=== PATIENT | female | born 1995 | race Caucasian/White ===

== ENCOUNTER 2017-01-04 07:23 | Day surgery (SDC) | payer BC ==
[~2017-01-04 07:23] MED LIST: PROPOFOL INJ 200 MG/20 ML VIAL IV ONE
[2017-01-04 10:07] VITALS: BP 114/59
--- NOTE | 2017-01-04 12:49 | Operative Report ---
Operative Report DATE OF SURGERY: 01/04/17 Operative Report: The risks, benefits and alternatives of the procedure including risks of bleeding, perforation requiring surgery are explained to the patient in detail and informed consent is obtained. Patient is brought back to the endoscopy suite. Patient is placed in a left lateral decubital position. Timeout is called. Propofol medication is administered. A rectal examination was done which did not reveal any masses, tears or fissures. An Olympus videoscope was inserted into the patient's rectum. The scope was then gradually advanced all the way to the cecum. The cecum as identified by the usual anatomical landmarks including the ileocecal valve as well as the appendiceal office. Photodocumentation was obtained. Prep is good. The scope was then sequentially pulled back via the various segments of the colon including the ascending colon, hepatic flexure, transverse colon, splenic flexure, descending colon and finally into the rectosigmoid colon. Mucosa does otherwise appeared to be normal. Retroflexion maneuver is performed. Volume this the patient's stretcher was turned around and EGD performed.The risks benefits and alternatives of the procedure explained to the patient in detail and informed consent is obtained that GIF Olympus video scope was inserted into the patient's mouth and hypopharynx the esophagus is identified intubated and insufflated the scope was then advanced through the esophagus stomach and duodenum retroflexion maneuver is done the esophagus stomach and first and second portions of the duodenum examined PREOPERATIVE DIAGNOSIS: Nausea ,vomiting. Change of bowel habits POSTOPERATIVE DIAGNOSIS: Duodenitis. Gastritis. Right-sided colitis status post biopsy OPERATION: Colonoscopy with biopsy. EGD with biopsy SURGEON: MABEL ALBA ANESTHESIA: LMAC TISSUE REMOVED OR ALTERED: Duodenal biopsies obtained to rule out for celiac disease. Gastric biopsies obtained to rule out for Helicobacter pylori. Right- sided inflammation status post biopsy rule out lymphocytic, collagenous, microscopic colitis. COMPLICATIONS: None. ESTIMATED BLOOD LOSS: none. INTRAOPERATIVE FINDINGS: Normal patent esophagus. In the colon, no evidence of Crohn's colitis, ulcerative colitis, AVMs, diverticulosis. PROCEDURE: Patient tolerated procedure well. No immediate postprocedure complications are noted. Patient is discharged in good condition. Discharge date 01/04/2017. Discharge diet: Regular. Discharge activity: Regular. Patient has a 2-3 week follow-up to discuss findings. Once biopsies are available of go ahead and give the patient a call. Patient is instructed to all the office or proceed to the emergency room after any postprocedure issues.
== END 2017-01-04 09:58 | disposition home or self-care (01) ==
LOC: END 07:23
PROVIDERS: ATTEND Internal Medicine Gastroenterology
PROC: 0DBF8ZX Excision of Right Large Intestine, Via Natural or Artificial Opening Endoscopic, Diagnostic (ICD-10-PCS; 2017-01-04)
PROC: 0DB98ZX Excision of Duodenum, Via Natural or Artificial Opening Endoscopic, Diagnostic (ICD-10-PCS; principal; 2017-01-04 09:00)
PROC: 0DB68ZX Excision of Stomach, Via Natural or Artificial Opening Endoscopic, Diagnostic (ICD-10-PCS; 2017-01-04 09:00)
DX: K29.50 Unspecified chronic gastritis without bleeding (principal); K29.80 Duodenitis without bleeding; K52.9 Noninfective gastroenteritis and colitis, unspecified; I49.5 Sick sinus syndrome; F41.9 Anxiety disorder, unspecified; R53.82 Chronic fatigue, unspecified; Q79.6 Ehlers-Danlos syndromes; G43.109 Migraine with aura, not intractable, without status migrainosus; G93.2 Benign intracranial hypertension; J45.909 Unspecified asthma, uncomplicated; E53.9 Vitamin B deficiency, unspecified
CPT/HCPCS: 43239; 45380; 88342 ×2; 88305 ×2; J2704; 740

== ENCOUNTER → 2017-04-14 | Outpatient (CLI) | payer BC ==
--- NOTE | 2017-04-14 14:23 | RADIOLOGY REPORT (SQ) ---
EXAM DESCRIPTION: HIP RIGHT AP/LATERAL COMPLETED DATE/TIME: 04/14/2017 2:11 pm REASON FOR STUDY: OTHER SPECIFIED JOINT DISORDERS, UNSPECIFIED HIP M25.859 OTHER SPECIFIED JOINT DI SORDERS, UNSPECIFIED HIP COMPARISON: None. NUMBER OF VIEWS: Two views. TECHNIQUE: AP pelvis and additional frog-leg view of the right hip. LIMITATIONS: None. FINDINGS: MINERALIZATION: Normal. RIGHT HIP: No fracture or dislocation. No worrisome bone lesions. LEFT HIP: No fracture or dislocation. No worrisome bone lesions. PUBIS AND ISCHIUM: No fracture. PELVIS: No fracture. SACRUM: No fracture or dislocation. No worrisome bone lesions. LOWER LUMBAR SPINE: No fracture or dislocation. No worrisome bone lesions. No significant disc disea se. SOFT TISSUES: No findings. OTHER: No other significant finding. IMPRESSION: NEGATIVE STUDY OF THE RIGHT HIP. NO RADIOGRAPHIC EVIDENCE OF ACUTE INJURY. TECHNICAL DOCUMENTATION: JOB ID: [id number] [employer]- All Rights Reserved
== END ==
LOC: OD 13:55
PROVIDERS: ATTEND Student in an Organized Health Care Education/Training Program
DX: M25.851 Other specified joint disorders, right hip (principal)

== ENCOUNTER → 2017-04-29 | Day surgery (SDC) | payer BC ==
--- NOTE | 2017-04-29 15:00 | RADIOLOGY REPORT (SQ) ---
EXAM DESCRIPTION: ARTHRO HIP; FLUORO/NEEDLE PLACEMENT COMPLETED DATE/TIME: 04/29/2017 2:48 pm REASON FOR STUDY: OTHER SPECIFIED JOINT DISORDER, R HIP M25.859 OTHER SPECIFIED JOINT DISORDERS, UN SPECIFIED HIP COMPARISON: None. FLUOROSCOPY TIME: 0.2 minutes 3 images saved to PACS. LIMITATIONS: None. PROCEDURE: Procedure, risks, benefits and alternatives explained to patient who then gave written c onsent. The right hip was marked and a time-out was called for correct marking verification. Entry site marked using fluoroscopic guidance. Hip prepped and draped using sterile technique. Local ane sthesia achieved using 1% lidocaine injection. Hypodermic needle introduced into the joint space un dana direct fluoroscopic visualization. Non-ionic contrast instilled to confirm intra-articular posit ion. Dilute gadolinium solution then injected. Needle removed and entry site covered with sterile bandage. No immediate complications noted. TECHNIQUE: Digital images acquired during fluoroscopy and stored on PACS. Patient immediately take n to the MR suite for additional imaging. INJECTION LOCATION: Right hip. CONTRAST TYPE AND AMOUNT: 1 cc Isovue 8 cc dilute ProHance IMPRESSION: SUCCESSFUL NEEDLE PLACEMENT AND INJECTION FOR RIGHT HIP MR ARTHROGRAM. COMMENT: Quality ID [id number]: Final reports for procedures using fluoroscopy that document radiation exp osure indices, or exposure time and number of fluorographic images (if radiation exposure indices are not available) TECHNICAL DOCUMENTATION: JOB ID: [id number] [employer] [facility]- All Rights Reserved
--- NOTE | 2017-04-29 16:46 | RADIOLOGY REPORT (SQ) ---
EXAM DESCRIPTION: MRI RT LOWER JOINT WITH COMPLETED DATE/TIME: 04/29/2017 3:52 pm REASON FOR STUDY: OTHER SPECIFIED JOINT DISORDERS, R HIP M25.859 OTHER SPECIFIED JOINT DISORDERS, U NSPECIFIED HIP COMPARISON: None. TECHNIQUE: Post arthrogram imaging is performed using T1 and T1 and T2 fat saturated sequences of th e pelvis and specific hip of interest. LIMITATIONS: Body habitus. Motion. FINDINGS: JOINT DISTENSION: Adequate. No loose body. BONE MARROW: No edema. No marrow replacement. FEMORAL HEAD, NECK, AND ACETABULUM: No occult fracture. No osteophytes or subchondral cysts. Normal s phericity of femoral head/neck junction. No acetabular dysplasia. No evidence of femoroacetabular imp ingement. PUBIC RAMI AND ISCHIUM: No occult fracture. SACRUM AND PREETHI: SI joints normal in signal. No occult fracture. EFFUSIONS: None. LABRUM AND CARTILAGE: Series 7, images 14 and 15, signal alteration anterior superior labrum consiste nt with a tear. MUSCLES AND SOFT TISSUES: Adductors and piriformis normal. Abductors and greater trochanteric bursa n ormal without edema or fluid. Iliopsoas bursa without fluid. Hamstring attachments without edema or t ear. PELVIC SOFT TISSUES: No masses or adenopathy. SCIATIC NERVE: Identified without masses. OTHER: No other significant finding. IMPRESSION: Anterior superior labral tear. TECHNICAL DOCUMENTATION: JOB ID: [id number] [employer]- All Rights Reserved
== END ==
LOC: RAD 12:45
PROVIDERS: ATTEND Student in an Organized Health Care Education/Training Program
PROC: BQ00ZZZ Plain Radiography of Right Hip (ICD-10-PCS; principal; 2017-04-29)
DX: M25.859 Other specified joint disorders, unspecified hip (principal); Q79.6 Ehlers-Danlos syndromes
CPT/HCPCS: 73722; 73525; 77002; A9576

== ENCOUNTER 2017-10-05 14:54 | Emergency (ER) | payer BC ==
--- NOTE | 2017-10-05 15:52 | ER Document Report ---
ED GI/ - General Chief Complaint: Nausea/Vomiting Stated Complaint: VOMITING Time Seen by Provider: 10/05/17 15:50 Notes: The patient is a 22-year-old female, PMHx Rosy-Danlos syndrome, pseudotumor cerebri, autonomic dysfunction, who presents with 2 days of nausea, vomiting, diarrhea and lower abdominal cramping. Patient also has a dull right posterior headache this feels similar to her prior headaches. Patient denies hematemesis , blood in stool, chest pain, shortness of breath, blurry vision, focal weakness , ataxia, flank pain, dysuria or vaginal bleeding. TRAVEL OUTSIDE OF THE [place] IN LAST 30 DAYS: No - Related Data Allergies/Adverse Reactions: adhesive Allergy (Severe, Verified 10/05/17 14:58) BLISTERS AND SKIN WILL RIP AND FALL OFF amoxicillin Allergy (Severe, Verified 10/05/17 14:58) Anaphylaxis clavulanic acid [From Augmentin] Allergy (Severe, Verified 10/05/17 14:58) Anaphylaxis egg Allergy (Severe, Verified 10/05/17 14:58) Anaphylaxis Influenza Virus Vaccines Allergy (Severe, Verified 10/05/17 14:58) Anaphylaxis latex Allergy (Severe, Verified 10/05/17 14:58) Anaphylaxis levofloxacin [From Levaquin] Allergy (Severe, Verified 10/05/17 14:58) Anaphylaxis povidone-iodine [From Betadine] Allergy (Severe, Verified 10/05/17 14:58) Anaphylaxis soap [From Betadine] Allergy (Severe, Verified 10/05/17 14:58) Anaphylaxis Sulfa (Sulfonamide Antibiotics) Allergy (Severe, Verified 10/05/17 14:58) Anaphylaxis aspartame [From Prevalite] Allergy (Mild, Verified 10/05/17 14:58) RASH cholestyramine [From Prevalite] Allergy (Mild, Verified 10/05/17 14:58) RASH nitrofurantoin [From Macrobid] Allergy (Mild, Verified 10/05/17 14:58) RASH CHLORAPREP Allergy (Severe, Uncoded 10/05/17 14:58) Anaphylaxis Past Medical History - General Information source: Patient - Social History Smoking Status: Unknown if Ever Smoked Family History: Reviewed & Not Pertinent - Past Medical History Cardiac Medical History: Denies: Hx Coronary Artery Disease, Hx Heart Attack, Hx Hypertension Pulmonary Medical History: Denies: Hx Asthma - REACTIVE [employer], Hx Bronchitis, Hx COPD, Hx Pneumonia Neurological Medical History: Denies: Hx Cerebrovascular Accident, Hx Seizures - DOES EXPERIENCE SYNCOPAL EPISODES Musculoskeltal Medical History: Reports Hx Arthritis - EARLY ONSET OSTEOARTHRITS , FREQUENT DISLOCATIONS OF JOINTS - Immunizations Hx Diphtheria, Pertussis, Tetanus Vaccination: No Review of Systems - Review of Systems Notes: REVIEW OF SYSTEMS: CONSTITUTIONAL: -fevers, -chills EENT: -eye pain, -difficulty swallowing, -nasal congestion CARDIOVASCULAR:-chest pain, -syncope. RESPIRATORY: -cough, -SOB GASTROINTESTINAL: +abdominal cramping, +nausea, +vomiting, +diarrhea GENITOURINARY: -dysuria, -hematuria MUSCULOSKELETAL: -back pain, -neck pain SKIN: -rash or skin lesions. HEMATOLOGIC: -easy bruising or bleeding. LYMPHATIC: -swollen, enlarged glands. NEUROLOGICAL: -altered mental status or loss of consciousness, +headache, - neurologic symptoms PSYCHIATRIC: -anxiety, -depression. ALL OTHER SYSTEMS REVIEWED AND NEGATIVE. Physical Exam - Vital signs Vitals: Temp Pulse Resp BP Pulse Ox 98.5 F 109 H 18 128/76 H 98 10/05/17 14:57 10/05/17 14:57 10/05/17 14:57 10/05/17 14:57 10/05/17 14:57 - Notes Notes: PHYSICAL EXAMINATION: GENERAL: Well-appearing, well-nourished and in no acute distress. HEAD: Atraumatic, normocephalic. EYES: Pupils equal round and reactive to light, extraocular movements intact, sclera anicteric, conjunctiva are normal. ENT: nares patent, oropharynx clear without exudates. Moist mucous membranes. NECK: Normal range of motion, supple without lymphadenopathy LUNGS: Breath sounds clear to auscultation bilaterally and equal. No wheezes rales or rhonchi. HEART: Tachycardia. Regular rhythm. ABDOMEN: Soft, mild suprapubic and RLQ tenderness, normoactive bowel sounds. No guarding, no rebound. No masses appreciated. EXTREMITIES: Normal range of motion, no pitting or edema. No cyanosis. NEUROLOGICAL: Cranial nerves grossly intact. Normal speech, normal gait. Normal sensory and motor exams. PSYCH: Normal mood, normal affect. SKIN: Warm, Dry, normal turgor, no rashes or lesions noted. Course - Re-evaluation Re-evalutation: Patient with 2 days of nausea, vomiting, diarrhea and right mid-lower quadrant abdominal pain. Labs are unremarkable, other than slight hypokalemia which was corrected in the ER. CT abdomen/pelvis does not show any evidence of appendicitis and her symptoms are atypical for ovarian torsion or TOA at this time. She is more tender above the pelvis. After IV fluids, pain control and antinausea medicine, her symptoms completely resolved and her tachycardia also resolved upon discharge. Patient's headache is chronic in nature and she is having no visual disturbances to suggest an IICH emergency. Patient was provided Zofran to help with her nausea and instructions to stay hydrated with follow-up at her primary care physician and GI doctor if needed. Given very strict return precautions and she understands. - Vital Signs Vital signs: Temp Pulse Resp BP Pulse Ox 98.5 F 109 H 27 H 122/85 96 10/05/17 14:57 10/05/17 14:57 10/05/17 18:59 10/05/17 19:00 10/05/17 18:59 - Laboratory Result Diagrams: 10/05/17 16:25 10/05/17 17:47 Laboratory results interpreted by me: 10/05/17 10/05/17 10/05/17 15:55 16:25 17:47 WBC 11.1 H Seg Neutrophils % 80.2 H Lymphocytes % 11.4 L Absolute Neutrophils 8.9 H Potassium 3.1 L BUN 3 L Calcium 8.3 L Total Protein 5.8 L Albumin 3.4 L Urine Ketones TRACE H Urine Blood MODERATE H Ur Leukocyte Esterase SMALL H - Diagnostic Test Radiology reviewed: Image reviewed, Reports reviewed Radiology results interpreted by me: CT A/P: NAD Discharge - Discharge Clinical Impression: Nausea vomiting and diarrhea, Hypokalemia Abdominal pain Qualifiers: Abdominal location: right lower quadrant Qualified Code(s): R10.31 - Right lower quadrant pain Headache Qualifiers: Headache type: unspecified Headache chronicity pattern: chronic headache Intractability: not intractable Qualified Code(s): R51 - Headache Condition: Stable Disposition: HOME, SELF-CARE Additional Instructions: ABDOMINAL PAIN: There are many causes of abdominal pain. Pain can mean a serious problem requiring surgery (such as appendicitis). It can also be an innocent problem that goes away on its own (such as a viral infection). Often, time must pass to determine the cause of pain. The physician does not feel that hospitalization is necessary, at present. Things may change within the next 24 hours. Call the doctor or come back for re- examination if any problems occur, such as: (1) Pain that becomes more severe, steady, or becomes concentrated in one specific area. Also, pain that is more severe with movement or coughing. (2) Vomiting that persists or becomes more frequent. (3) Blood in the vomitus, urine, or bowel movements. Blood in the stool may have a tarry or black appearance. (4) Shaking chills or fever greater than 100 degrees F. (5) The abdomen becomes more distended or swollen. (6) Bowel movements cease. (7) Failure to improve as expected. NORMAL EXAM AND WORKUP: At this time, your examination and workup show no significant abnormality. No significant abnormal physical findings are noted. All laboratory, EKG, and imaging (x-ray, CT scans, ultrasound) studies that were ordered show no significant abnormality. Although your examination and all studies that were ordered showed no significant abnormal finding, there are no examinations and no studies that are 100% accurate. There is always the possibility that some abnormality could exist and not be detected with physical examination or within the limits and capabilities of laboratory and other studies. You should return or follow up as you were instructed on your visit today for further evaluation if your symptoms do not resolve. TORADOL INJECTION: You have been given an injection of ketorolac tromethamine (Toradol). This is an excellent, safe drug for pain control. It also has potent antiinflammatory action. You should have significant pain relief within about one hour. Toradol is not addicting and is non-sedating. It does not interfere with driving or work. Call or return if you develop itching, hives, shortness of breath, or rash. PAIN MEDICATION INJECTION: You have received an injection of a pain medication. You should experience significant pain relief within 45 minutes. This drug is a narcotic - - it will impair your judgement, slow your reaction time and make you sleepy ( as well as relieve your pain). Narcotics also can cause nausea. You should not drive, work with machinery, or perform any task requiring mental alertness until all effects of the medication are gone -- six to eight hours. Do not take any alcohol, or sedatives, and do not take any other medication without checking with your physician. ANTINAUSEA MEDICATION: You have been given a medication to suppress nausea and vomiting. This type of medication can be given as a shot, pill, or suppository. It will usually last for many hours. Pills and shots usually last six to eight hours, suppositories last about 12 hours. For the typical illness, only one or two doses of the medication may be necessary. Mild lightheadedness may occur. This type of medicine can cause drowsiness. Do not drive or operate dangerous machinery while under its influence. Do not mix with alcohol. See your doctor at once if you have muscle spasms or tightness, or uncontrollable motions (particularly of the neck, mouth, or jaw). Persistent vomiting or severe lightheadedness should also be evaluated by the physician. FOLLOW-UP CARE: If you have been referred to a physician for follow-up care, call the physician s office for an appointment as you were instructed or within the next two days. If you experience worsening or a significant change in your symptoms, notify the physician immediately or return to the Emergency Department at any time for re-evaluation. VOMITING: Vomiting (or nausea without vomiting) can be caused by many other different problems. It can mean that something's wrong with the stomach, such as ulcers or inflammation or the intestinal tract, such as appendicitis. But it can also be a symptom of a problem that has nothing to do with the stomach or intestines. Vomiting is common with severe headaches, earaches, tonsillitis, and kidney infections, etc. We see it with pneumonia or heart attacks. Drugs can cause nausea and vomiting. Many abdominal problems cause vomiting; for example, gallstones, kidney stones, pancreatitis, and intestinal obstruction ( blocked bowels). In most cases, curing the vomiting depends on fixing the problem that caused it. For temporary relief, we may use an anti-nausea medicine. For home use, we can prescribe suppositories, chewable pills, pills that dissolve in the mouth, or liquid anti-nausea drugs. If the vomiting seems to be caused by a problem in the stomach, acid-suppressing drugs may be prescribed as well. It's important to avoid dehydration. Sip small amounts of clear liquids ( soft drinks, tea, broth, etc) . Try to take fluids frequently even if you are vomiting to prevent dehydration. Take increasing amounts of fluid and when liquids are being consumed successfully, advance to small amounts of bland food (toast, soups, mashed potatoes, etc.) until you are able to resume a regular diet. Avoid aspirin, tobacco, and alcohol. If the vomiting worsens, if the problem that's making you vomit worsens, or if there's evidence of bleeding in the stomach (such as black, tarry stool, or bloody or black vomit), you should return immediately. Also, return if abdominal pain worsens or becomes localized to one area or you develop high fever. Call your doctor if you aren't improved in 24 hours. DIARRHEA, NON-SPECIFIC: Diarrhea means frequent, watery stools. There are many causes. Any problem that keeps the intestinal tract from absorbing water from the stool can lead to diarrhea. A sudden new diarrhea problem is usually caused by a virus, food sensitivity, toxic bacteria, or drugs. In this case, we expect the problem to go away soon. Testing is done only if you seem seriously ill from the diarrhea. If you have chronic diarrhea, or diarrhea that keeps coming back, we need to find out why. Chronic diarrhea can be due to inflammation of the bowels such as Crohn's disease or ulcerative colitis, food sensitivity such as intolerance to lactose or wheat protein, irritable bowel syndrome, and other problems. If your diarrhea is a significant problem but it's not clear why you have it, we' ll refer you to a specialist for further testing. During an episode of diarrhea, drink small amounts (two to six ounces) of clear liquids (soft drinks, sport drinks, herb teas, broth, etc). Take fluids frequently to prevent dehydration. It's usually not a problem to take mild anti- diarrhea medication such as Kaopectate or Pepto-Bismol. As the diarrhea eases, advance to small amounts of bland food (mashed potato, toast) for 24 hours. Call the physician if blood appears in your vomit or stool, if vomiting lasts longer than 24 hours, if the abdominal pain worsens or becomes localized to one area, if you develop high fever, or if you become lightheaded and weak. VIRAL SYNDROME: The physician has diagnosed a viral infection. Viruses not only cause "colds," but can cause many different symptoms including generalized aching, fever, headache, cough, diarrhea, nausea, vomiting, and fatigue. The treatment, for the most part, is simply relief of symptoms. This means that antibiotics are usually not given. Rest, fluids, pain medications and, occasionally, medication for the specific symptoms that are most bothersome will be prescribed. Use good handwashing to avoid passing the virus to others. Shared toys should be cleaned with disinfectant. Clean the toilets, sinks, and counter surfaces in bathrooms. Launder clothing in hot water. Contact the physician if you develop any new or unusual symptoms such as severe headache, stiff neck, high fever, chest pain, productive cough, or shortness of breath. You should be rechecked if you don't see marked improvement within seven to 10 days. INTRAVENOUS (I V) FLUIDS: As part of your care today, you received intravenous (IV) fluids. IV fluids are administered to patients who are dehydrated or to those who have certain chemical (electrolyte) abnormalities that need correcting. ANTINAUSEA MEDICATION: You have been given a medication to suppress nausea and vomiting. This type of medication can be given as a shot, pill, or suppository. It will usually last for many hours. Pills and shots usually last six to eight hours. For the typical illness, only one or two doses of the medication may be necessary. Mild lightheadedness may occur. This type of medicine can cause drowsiness. Do not drive or operate dangerous machinery while under its influence. Do not mix with alcohol. See your doctor at once if you have muscle spasms or tightness, or uncontrollable motions (particularly of the neck, mouth, or jaw). Persistent vomiting or severe lightheadedness should also be evaluated by the physician. REGLAN (METOCLOPRAMIDE): Reglan has been prescribed. This medicine affects the stomach and intestines. It can be used to treat nausea and vomiting, to prevent reflux of stomach acid up into the esophagus, or to increase the contractions of the stomach and intestines. It is often prescribed for esophagitis, and for paralysis of the stomach in diabetics. Reglan can cause either mild restlessness or drowsiness. You should contact the doctor at once if you become extremely restless, anxious, or cannot sleep, or if you develop uncontrollable motions of the lips, tongue, or jaw. Do not take alcohol with this medicine. Do not drive or operate machinery until you have been taking this medicine long enough to know how it affects you. Call the doctor if you develop abdominal pains, lightheadedness, black stool, or blood in the stool or vomitus. FOLLOW-UP CARE: If you have been referred to a physician for follow-up care, call the physician s office for an appointment as you were instructed or within the next two days. If you experience worsening or a significant change in your symptoms, notify the physician immediately or return to the Emergency Department at any time for re-evaluation. Prescriptions: Ondansetron [Zofran Odt 4 mg Tablet] 1 - 2 tab PO Q4H PRN #15 tab.rapdis PRN Reason: For Nausea/Vomiting Referrals: WASHINGTON MCKINLEY DO [Primary Care Provider] - Follow up as needed BRYCE SALVADOR MD [ACTIVE STAFF] - Follow up as needed
[2017-10-05] MEDS ORDERED: ONDANSETRON HCL INJ/PF 4 MG/2 ML SDV IV ONE (16:05)
[2017-10-05 16:26] LABS: APPEARANCE,URINE CLEAR; BILIRUBIN,URINE NEGATIVE (NEGATIVE); GLUCOSE, URINE NEGATIVE (NEGATIVE); KETONES,URINE TRACE mg/dL (NEGATIVE); LEUKOCYTE ESTERASE,URINE SMALL (NEGATIVE); NITRITE,URINE NEGATIVE (NEGATIVE); PROTEIN,URINE NEGATIVE (NEGATIVE); URINE SPECIFIC GRAVITY 1.004; UROBILINOGEN,URINE NEGATIVE mg/dL (<2.0)
[2017-10-05 16:40] LABS: ABSOLUTE BASOPHILS # (AUTO) 0.1 10^3/uL (0.0-0.2); ABSOLUTE LYMPHOCYTES (AUTO) 1.3 10^3/uL (0.5-4.7); ABSOLUTE MONOCYTES (AUTO) 0.8 10^3/uL (0.1-1.4); ABSOLUTE NEUT (AUTO) 8.9 10^3/uL (1.7-8.2); BASOPHILS % (AUTO) 0.6 % (0-2); EOSINOPHILS % (AUTO) 0.4 % (0-6); HEMATOCRIT 38.2 % (36.0-47.0); HEMOGLOBIN 13.4 g/dL (12.0-15.5); LYMPHOCYTES % (AUTO) 11.4 % (13-45); MEAN CORPUSCULAR HEMOGLOBIN 30.2 pg (27.0-33.4); MEAN CORPUSCULAR VOLUME 86 fl (80-97); MONOCYTES % (AUTO) 7.4 % (3-13); RED BLOOD COUNT 4.43 10^6/uL (3.72-5.28); RED CELL DISTRIBUTION WIDTH 12.7 % (11.5-14.0); SEGMENTED NEUTROPHILS % (AUTO) 80.2 % (42-78); WHITE BLOOD COUNT 11.1 10^3/uL (4.0-10.5)
[2017-10-05] MEDS ORDERED: KETOROLAC TROMETHAMINE INJ/PF 30 MG/1 ML SDV IV ONE (16:40)
[2017-10-05] MEDS: NORMAL SALINE 1000 ML 1,000 ML IV PRN ×2 (16:45→19:21)
[2017-10-05 18:20] LABS: ALANINE AMINOTRANSFERASE 44 U/L (9-52); ALBUMIN 3.4 g/dL (3.5-5.0); ALKALINE PHOSPHATASE 54 U/L (38-126); ANION GAP 12 (5-19); ASPARTATE AMINO TRANSFERASE 17 U/L (14-36); BILIRUBIN,DIRECT 0.2 mg/dL (0.0-0.4); BILIRUBIN,TOTAL 0.5 mg/dL (0.2-1.3); BLOOD UREA NITROGEN 3 mg/dL (7-20); CALCIUM 8.3 mg/dL (8.4-10.2); CARBON DIOXIDE 22 mmol/L (22-30); CHLORIDE 107 mmol/L (98-107); CREATININE RESULT 0.54 mg/dL (0.52-1.25); GLUCOSE 96 mg/dL (75-110); LIPASE 26.3 U/L (23-300); POTASSIUM 3.1 mmol/L (3.6-5.0); SODIUM 140.8 mmol/L (137-145); TOTAL PROTEIN 5.8 g/dL (6.3-8.2)
[2017-10-05] MEDS ORDERED: POTASSIUM CHLORIDE 10 MEQ TABLET.SA PO ONE (18:25)
[2017-10-05] MEDS ORDERED: METOCLOPRAMIDE HCL INJ/PF 10 MG/2 ML SDV IV ONE (18:27)
[2017-10-05] MEDS ORDERED: MORPHINE SULFATE 10 MG/ML INJ IV ONE (18:27)
--- NOTE | 2017-10-05 19:22 | RADIOLOGY REPORT (SQ) ---
EXAM DESCRIPTION: CT ABD/PELVIS WITH IV ONLY COMPLETED DATE/TIME: 10/05/2017 7:13 pm REASON FOR STUDY: RLQ tenderness COMPARISON: None. TECHNIQUE: CT scan of the abdomen and pelvis performed using helical scanning technique with dynamic intravenous contrast injection. No oral contrast. Images reviewed with lung, soft tissue, and bone windows. Reconstructed coronal and sagittal MPR images reviewed. Delayed images for evaluation of the urinary system also acquired. All images stored on PACS. All CT scanners at this facility use dose modulation, iterative reconstruction, and/or weight based d osing when appropriate to reduce radiation dose to as low as reasonably achievable (ALARA). [facility]: Dose Right [facility]: CareDose [facility]: Dose Right [facility]: Teradose 4D [facility]: [facility] CONTRAST TYPE AND DOSE: contrast/concentration: Isovue 370.00 mg/ml; Total Contrast Delivered: 100.0 ml; Total Saline Delivered: 45.0 ml RENAL FUNCTION: None required. The patient is less than 50 years old. RADIATION DOSE: Up-to-date CT equipment and radiation dose reduction techniques were employed. CTDIv ol: NaN - NaN mGy. DLP: 0 mGy-cm.. LIMITATIONS: None. FINDINGS: LOWER CHEST: No significant findings. No nodules or infiltrates. LIVER: Normal size. No masses. No dilated ducts. SPLEEN: Normal size. No focal lesions. PANCREAS: No masses. No significant calcifications. No adjacent inflammation or peripancreatic fluid collections. Pancreatic duct not dilated. GALLBLADDER: Surgically absent. ADRENAL GLANDS: No significant masses or asymmetry. RIGHT KIDNEY AND URETER: No solid masses. No significant calcifications. No hydronephrosis or hyd roureter. LEFT KIDNEY AND URETER: No solid masses. No significant calcifications. No hydronephrosis or hydr oureter. AORTA AND VESSELS: No aneurysm. No dissection. Renal arteries, SMA, celiac without stenosis. RETROPERITONEUM: No retroperitoneal adenopathy, hemorrhage or masses. BOWEL AND PERITONEAL CAVITY: No masses or inflammatory changes. No free fluid or peritoneal masses. APPENDIX: Normal. PELVIS: No mass. No free fluid. Normal bladder. ABDOMINAL WALL: No masses. No hernias. BONES: No significant or acute findings. OTHER: No other significant finding. IMPRESSION: NO SIGNIFICANT OR ACUTE FINDING IN THE ABDOMEN OR PELVIS ON CT SCAN WITH IV CONTRAST. TECHNICAL DOCUMENTATION: JOB ID: [id number] Quality ID # [id number]: Final reports with documentation of one or more dose reduction techniques (e.g., Au tomated exposure control, adjustment of the mA and/or kV according to patient size, use of iterative reconstruction technique) 2010 [employer]- All Rights Reserved
[2017-10-05 19:55] VITALS: BP 124/76
== END 2017-10-05 19:55 | disposition home or self-care (01) ==
LOC: ER 14:54
DX: R11.2 Nausea with vomiting, unspecified (principal); R19.7 Diarrhea, unspecified; E87.6 Hypokalemia; R10.31 Right lower quadrant pain; R51 Headache
CPT/HCPCS: 99284; 96361; 96374; 96375; 36415; 83690; 84703; 85025; 80053; 81001; 74177; J1885; J2765; J2270; J2405; J7030

== ENCOUNTER → 2017-12-16 | Outpatient (CLI) | payer BC ==
--- NOTE | 2017-12-16 15:26 | RADIOLOGY REPORT (SQ) ---
EXAM DESCRIPTION: PHYSI[employer]TD COMPLETED DATE/TIME: 12/16/2017 3:01 pm REASON FOR STUDY: PAIN M79.661 PAIN IN RIGHT LOWER LEG COMPARISON: None. TECHNIQUE: Brachial blood pressure obtained. Pressures obtained of the peripheral vessels at the lev el of the ankle. Ankle brachial indices calculated. LIMITATIONS: None. FINDINGS: RIGHT SARAH: 0.88. LEFT SARAH: 0.95. IMPRESSION: MILDLY DECREASED ANKLE-BRACHIAL INDICES. CORRESPOND TO BORDERLINE CLAUDICATION IN THE R IGHT LEG AND MINIMAL DISEASE IN THE LEFT LEG. COMMENT: [facility] NORMAL: Greater than 1.0 MINIMAL DISEASE: 0.9 to 1.0 CLAUDICATION: 0.5 to 0.9 SEVERE ARTERIAL DISEASE: Less than 0.5 [facility] NORMAL: Greater than 1.0 (1.2 If Heavy Calcifications) NORMAL TO MILD ISCHEMIA: 0.8 to 1.0 MODERATE ISCHEMIA: 0.4 to 0.8 SEVERE ISCHEMIA: Less than 0.4 TECHNICAL DOCUMENTATION: JOB ID: [id number] [employer]- All Rights Reserved
== END ==
LOC: SP 14:00
PROVIDERS: ATTEND Student in an Organized Health Care Education/Training Program
DX: I73.9 Peripheral vascular disease, unspecified (principal); M79.661 Pain in right lower leg
CPT/HCPCS: 93922

== ENCOUNTER 2018-01-15 12:42 | Emergency (ER) | payer BC ==
--- NOTE | 2018-01-15 13:06 | ER Document Report ---
ED Medical Screen (RME) - General Chief Complaint: Leg Pain Stated Complaint: LEG PAIN, NUMBNESS, DIZZY Time Seen by Provider: 01/15/18 13:04 Mode of Arrival: Wheelchair Information source: Patient TRAVEL OUTSIDE OF THE [place] IN LAST 30 DAYS: No - HPI Patient complains to provider of: R leg pain; syncope Onset: Other - Pt. states she has had R leg pain for several weeks -- had SARAH done but doesn't know results. Now has numbness in R leg. - Related Data Allergies/Adverse Reactions: adhesive Allergy (Severe, Verified 01/15/18 13:00) BLISTERS AND SKIN WILL RIP AND FALL OFF amoxicillin Allergy (Severe, Verified 01/15/18 13:00) Anaphylaxis ciprofloxacin [From Cipro] Allergy (Severe, Verified 01/15/18 13:00) Anaphylaxis clavulanic acid [From Augmentin] Allergy (Severe, Verified 01/15/18 13:00) Anaphylaxis egg Allergy (Severe, Verified 01/15/18 13:00) Anaphylaxis Influenza Virus Vaccines Allergy (Severe, Verified 01/15/18 13:00) Anaphylaxis latex Allergy (Severe, Verified 01/15/18 13:00) Anaphylaxis levofloxacin [From Levaquin] Allergy (Severe, Verified 01/15/18 13:00) Anaphylaxis Penicillins Allergy (Severe, Verified 01/15/18 13:00) Anaphylaxis povidone-iodine [From Betadine] Allergy (Severe, Verified 01/15/18 13:00) Anaphylaxis soap [From Betadine] Allergy (Severe, Verified 01/15/18 13:00) Anaphylaxis Sulfa (Sulfonamide Antibiotics) Allergy (Severe, Verified 01/15/18 13:00) Anaphylaxis aspartame [From Prevalite] Allergy (Mild, Verified 01/15/18 13:00) RASH cholestyramine [From Prevalite] Allergy (Mild, Verified 01/15/18 13:00) RASH nitrofurantoin [From Macrobid] Allergy (Mild, Verified 01/15/18 13:00) RASH CHLORAPREP Allergy (Severe, Uncoded 01/15/18 13:00) Anaphylaxis Past Medical History - Social History Chew tobacco use (# tins/day): No Frequency of alcohol use: None Drug Abuse: None - Past Medical History Cardiac Medical History: Denies: Hx Coronary Artery Disease, Hx Heart Attack, Hx Hypertension Pulmonary Medical History: Denies: Hx Asthma - REACTIVE AIRWAY, Hx Bronchitis, Hx COPD, Hx Pneumonia Neurological Medical History: Denies: Hx Cerebrovascular Accident, Hx Seizures - DOES EXPERIENCE SYNCOPAL EPISODES Renal/ Medical History: Denies: Hx Peritoneal Dialysis Musculoskeltal Medical History: Reports Hx Arthritis - EARLY ONSET OSTEOARTHRITS , FREQUENT DISLOCATIONS OF JOINTS Past Surgical History: Reports: Hx Gynecologic Surgery - Immunizations Hx Diphtheria, Pertussis, Tetanus Vaccination: No Physical Exam - Vital signs Vitals: Temp Pulse Resp BP Pulse Ox 97.9 F 96 16 135/83 H 99 01/15/18 12:52 01/15/18 12:52 01/15/18 12:52 01/15/18 12:52 01/15/18 12:52 Course - Vital Signs Vital signs: Temp Pulse Resp BP Pulse Ox 97.9 F 96 16 135/83 H 99 01/15/18 12:52 01/15/18 12:52 01/15/18 12:52 01/15/18 12:52 01/15/18 12:52
[2018-01-15 14:07] LABS: ABSOLUTE BASOPHILS # (AUTO) 0.1 10^3/uL (0.0-0.2); ABSOLUTE EOSINOPHILS # (AUTO) 0.2 10^3/uL (0.0-0.6); ABSOLUTE LYMPHOCYTES (AUTO) 2.2 10^3/uL (0.5-4.7); ABSOLUTE MONOCYTES (AUTO) 0.6 10^3/uL (0.1-1.4); ABSOLUTE NEUT (AUTO) 9.2 10^3/uL (1.7-8.2); BASOPHILS % (AUTO) 0.7 % (0-2); EOSINOPHILS % (AUTO) 1.5 % (0-6); HEMATOCRIT 47.5 % (36.0-47.0); LYMPHOCYTES % (AUTO) 17.7 % (13-45); MEAN CORPUSCULAR HEMOGLOBIN 29.7 pg (27.0-33.4); MEAN CORPUSCULAR HGB CONC 33.8 g/dL (32.0-36.0); MEAN CORPUSCULAR VOLUME 88 fl (80-97); MONOCYTES % (AUTO) 4.8 % (3-13); PLATELET COUNT 504 10^3/uL (150-450); RED CELL DISTRIBUTION WIDTH 13.3 % (11.5-14.0); SEGMENTED NEUTROPHILS % (AUTO) 75.3 % (42-78); TOTAL CELLS COUNTED % (AUTO) 100 %; WHITE BLOOD COUNT 12.2 10^3/uL (4.0-10.5)
--- NOTE | 2018-01-15 14:14 | ER Document Report ---
ED Extremity Problem, Lower - General Chief Complaint: Leg Pain Stated Complaint: LEG PAIN, NUMBNESS, DIZZY Time Seen by Provider: 01/15/18 13:04 Mode of Arrival: Wheelchair Notes: The patient is a 23-year-old female, past medical history dysautoregulation, Rosy-Danlos syndrome, spinal stenosis, presents after she feels like her right leg has fallen asleep. She has had this multiple times in the past and it usually occurs when her potassium is low. She was unable to obtain her potassium and saline infusions over the past week due to difficulty obtaining IV access, but she is due for a port soon. Patient also said that she has had multiple brief syncopal episodes, which she says is common for her when she is dehydrated. Patient has had an SARAH as an outpatient, but she does not know the results. Patient denies head injury, headache, increased back pain, saddle anesthesia, change in bowel or bladder, chest pain, shortness of breath, fevers , abdominal pain or head injury. TRAVEL OUTSIDE OF THE [place] IN LAST 30 DAYS: No - Related Data Allergies/Adverse Reactions: adhesive Allergy (Severe, Verified 01/15/18 13:00) BLISTERS AND SKIN WILL RIP AND FALL OFF amoxicillin Allergy (Severe, Verified 01/15/18 13:00) Anaphylaxis ciprofloxacin [From Cipro] Allergy (Severe, Verified 01/15/18 13:00) Anaphylaxis clavulanic acid [From Augmentin] Allergy (Severe, Verified 01/15/18 13:00) Anaphylaxis egg Allergy (Severe, Verified 01/15/18 13:00) Anaphylaxis Influenza Virus Vaccines Allergy (Severe, Verified 01/15/18 13:00) Anaphylaxis latex Allergy (Severe, Verified 01/15/18 13:00) Anaphylaxis levofloxacin [From Levaquin] Allergy (Severe, Verified 01/15/18 13:00) Anaphylaxis Penicillins Allergy (Severe, Verified 01/15/18 13:00) Anaphylaxis povidone-iodine [From Betadine] Allergy (Severe, Verified 01/15/18 13:00) Anaphylaxis soap [From Betadine] Allergy (Severe, Verified 01/15/18 13:00) Anaphylaxis Sulfa (Sulfonamide Antibiotics) Allergy (Severe, Verified 01/15/18 13:00) Anaphylaxis aspartame [From Prevalite] Allergy (Mild, Verified 01/15/18 13:00) RASH cholestyramine [From Prevalite] Allergy (Mild, Verified 01/15/18 13:00) RASH nitrofurantoin [From Macrobid] Allergy (Mild, Verified 01/15/18 13:00) RASH CHLORAPREP Allergy (Severe, Uncoded 01/15/18 13:00) Anaphylaxis Past Medical History - General Information source: Patient - Social History Smoking Status: Never Smoker Chew tobacco use (# tins/day): No Frequency of alcohol use: None Drug Abuse: None Family History: Reviewed & Not Pertinent Patient has suicidal ideation: No Patient has homicidal ideation: No - Past Medical History Cardiac Medical History: Denies: Hx Coronary Artery Disease, Hx Heart Attack, Hx Hypertension Pulmonary Medical History: Denies: Hx Asthma - REACTIVE AIRWAY, Hx Bronchitis, Hx COPD, Hx Pneumonia Neurological Medical History: Denies: Hx Cerebrovascular Accident, Hx Seizures - DOES EXPERIENCE SYNCOPAL EPISODES Renal/ Medical History: Denies: Hx Peritoneal Dialysis Musculoskeltal Medical History: Reports Hx Arthritis - EARLY ONSET OSTEOARTHRITS , FREQUENT DISLOCATIONS OF JOINTS Past Surgical History: Reports: Hx Gynecologic Surgery - Immunizations Hx Diphtheria, Pertussis, Tetanus Vaccination: No Review of Systems - Review of Systems Notes: REVIEW OF SYSTEMS: CONSTITUTIONAL: -fevers, -chills EENT: -eye pain, -difficulty swallowing, -nasal congestion CARDIOVASCULAR: -chest pain, +syncope. RESPIRATORY: -cough, -SOB GASTROINTESTINAL: -abdominal pain, -nausea, -vomiting, -diarrhea GENITOURINARY: -dysuria, -hematuria MUSCULOSKELETAL: -back pain, -neck pain SKIN: -rash or skin lesions. HEMATOLOGIC: -easy bruising or bleeding. LYMPHATIC: -swollen, enlarged glands. NEUROLOGICAL: -altered mental status or loss of consciousness, -headache, + right leg numbness PSYCHIATRIC: -anxiety, -depression. ALL OTHER SYSTEMS REVIEWED AND NEGATIVE. Physical Exam - Vital signs Vitals: Temp Pulse Resp BP Pulse Ox 97.9 F 96 16 135/83 H 99 01/15/18 12:52 01/15/18 12:52 01/15/18 12:52 01/15/18 12:52 01/15/18 12:52 - Notes Notes: PHYSICAL EXAMINATION: GENERAL: Well-appearing, well-nourished and in no acute distress. HEAD: Atraumatic, normocephalic. EYES: Pupils equal round and reactive to light, extraocular movements intact, sclera anicteric, conjunctiva are normal. ENT: nares patent, oropharynx clear without exudates. Moist mucous membranes. NECK: Normal range of motion, supple without lymphadenopathy LUNGS: Breath sounds clear to auscultation bilaterally and equal. No wheezes rales or rhonchi. HEART: Regular rate and rhythm without murmurs ABDOMEN: Soft, nontender, normoactive bowel sounds. No guarding, no rebound. No masses appreciated. EXTREMITIES: Normal range of motion, no pitting or edema. No cyanosis. Strong distal pulses. NEUROLOGICAL: Cranial nerves grossly intact. Normal speech, normal gait. 5/5 strength in all 4 extremities. Numbness below her right knee. PSYCH: Normal mood, normal affect. SKIN: Warm, Dry, normal turgor, no rashes or lesions noted. Course - Re-evaluation Re-evalutation: Patient appears well and is in no acute distress. Vital signs are normal. Patient has had right lower leg numbness and tingling multiple times in the past with yearly EMG studies. She follows with her neurologist for this. Vascular ultrasound does not show any DVTs and she has good blood flow through her arteries. Her potassium is normal and after 1 L normal saline, she feels better. No syncopal episodes in the ER and EKG does not show any concerning abnormalities. Patient says that her dysautoregulation causes these symptoms. She has a slight leukocytosis, but no evidence of infection and this appears chronic in nature. Instructed her to follow-up with her primary care physician and neurologist for further evaluation and treatment. - Vital Signs Vital signs: Temp Pulse Resp BP Pulse Ox 97.9 F 96 16 135/83 H 99 01/15/18 12:52 01/15/18 12:52 01/15/18 12:52 01/15/18 12:52 01/15/18 12:52 - Laboratory Result Diagrams: 01/15/18 13:45 01/15/18 13:45 Laboratory results interpreted by me: 01/15/18 01/15/18 13:45 13:45 WBC 12.2 H RBC 5.40 H Hgb 16.0 H Hct 47.5 H Plt Count 504 H Absolute Neutrophils 9.2 H Calcium 10.4 H Albumin 5.2 H Discharge - Discharge Clinical Impression: Right leg numbness Condition: Stable Disposition: HOME, SELF-CARE Additional Instructions: Radiculopathy Radiculopathy is irritation of a nerve. Sometimes this is called "pinched nerve." The pain can be sharp and stabbing, constant and dull, or burning in nature. The pain can occur in any area of the chest, shoulders, or arms. Sometimes the pain is provoked by coughing or moving. Radiculopathy can be caused by physical pressure on a nerve, such as a herniated disc or swollen joint in the spine. It can also be caused by viral infections within the nerve or by nerve damage due to diabetes or blood vessel disease. Radicular pain is treated with antiinflammatory medicine. Injections may help resistant cases, if we can identify a single nerve that's causing the pain. Surgery is usually not necessary. If symptoms do not improve with time, you may need additional testing, such as an MRI or EMG (electromyogram). Return if there is local weakness, shortness of breath, increasing pain, or other new symptoms. SYNCOPAL EPISODE: Syncope (fainting or near-fainting) can occur from many different health problems. Or it can be a simple fainting spell requiring no treatment. It is safe for you to go home, but further evaluation will likely be necessary. Your work-up may include tests for internal bleeding, heart disease, medication problems, or near-strokes. Tests are not always required, however, depending on the nature of your problem. The warning signs of an impending faint include: dizziness, lightheadedness , nausea, hot flashes, tingling, and weakness. If this happens, lay down and put your feet up, then wait until all of these symptoms have passed before standing up again. If these episodes become recurrent, or if you develop chest pain, heart palpitations, mental confusion, blurred vision, or headache, then you should call the physician, or go to the emergency room. NEAR SYNCOPAL EPISODE: Syncope or near syncope (fainting or near-fainting) can occur from many different health problems. Or it can be a simple fainting spell requiring no treatment. It is safe for you to go home, but further evaluation will likely be necessary. Your work-up may include tests for internal bleeding, heart disease, medication problems, or near-strokes. Tests are not always required, however, depending on the nature of your problem. The warning signs of an impending faint include: dizziness, lightheadedness , nausea, hot flashes, tingling, and weakness. If this happens, lay down and put your feet up, then wait until all of these symptoms have passed before standing up again. If these episodes become recurrent, or if you develop chest pain, heart palpitations, mental confusion, blurred vision, or headache, then you should call the physician, or go to the emergency room. NORMAL EXAM AND WORKUP: At this time, your examination and workup show no significant abnormality. No significant abnormal physical findings were noted. All laboratory, EKG, and imaging (x-ray, CT scans, ultrasound) studies that were ordered show no significant abnormality. Although your examination and all studies that were ordered showed no significant abnormal finding, there are no examinations and no studies that are 100% accurate. There is always the possibility that some abnormality could exist and not be detected with physical examination or within the limits and capabilities of laboratory and other studies. You should return or follow up as you were instructed on your visit today for further evaluation if your symptoms do not resolve. FOLLOW-UP CARE: If you have been referred to a physician for follow-up care, call the physician s office for an appointment as you were instructed or within the next two days. If you experience worsening or a significant change in your symptoms, notify the physician immediately or return to the Emergency Department at any time for re-evaluation. Forms: Elevated Blood Pressure Referrals: WASHINGTON MCKINLEY, [Primary Care Provider] - Follow up as needed
[2018-01-15] MEDS ORDERED: NORMAL SALINE 1000 ML 1,000 ML IV ONE (14:20)
[2018-01-15 14:23] LABS: ALANINE AMINOTRANSFERASE 34 U/L (9-52); ALBUMIN 5.2 g/dL (3.5-5.0); ALKALINE PHOSPHATASE 89 U/L (38-126); ANION GAP 15 (5-19); ASPARTATE AMINO TRANSFERASE 20 U/L (14-36); BILIRUBIN,DIRECT 0.2 mg/dL (0.0-0.4); BILIRUBIN,TOTAL 0.4 mg/dL (0.2-1.3); BLOOD UREA NITROGEN 11 mg/dL (7-20); CALCIUM 10.4 mg/dL (8.4-10.2); CARBON DIOXIDE 26 mmol/L (22-30); CHLORIDE 103 mmol/L (98-107); GLUCOSE 95 mg/dL (75-110); POTASSIUM 4.5 mmol/L (3.6-5.0); SODIUM 144.4 mmol/L (137-145); TOTAL PROTEIN 8.2 g/dL (6.3-8.2)
--- NOTE | 2018-01-15 14:24 | RADIOLOGY REPORT (SQ) ---
EXAM DESCRIPTION: VENOUS UNILATERAL LOWER COMPLETED DATE/TIME: 01/15/2018 2:16 pm REASON FOR STUDY: atrumatic R leg pain COMPARISON: None. TECHNIQUE: Dynamic and static mcnair scale and color images acquired of the right leg venous system. S elected spectral images acquired with additional compression and augmentation maneuvers. The contrala teral common femoral vein and saphenofemoral junction were also imaged. Images stored on PACS. LIMITATIONS: None. FINDINGS: RIGHT COMMON FEMORAL: Normal phasicity, compression and augmentation. No visualized echogenic material on g ray scale. No defects on color images. FEMORAL: Normal compression and augmentation. No visualized echogenic material on mcnair scale. No defe cts on color images. POPLITEAL: Normal compression, augmentation. No visualized echogenic material on mcnair scale. No defec ts on color images. CALF VESSELS: Normal compression, augmentation. No visualized echogenic material on mcnair scale. No de fects on color images. GSV and SSV: Normal compression, augmentation. No visualized echogenic material on mcnair scale. No def ects on color images. ANY DEEP VENOUS INSUFFICIENCY: Not evaluated. ANY EVIDENCE OF POPLITEAL CYST: No. OTHER: No other significant finding. LEFT COMMON FEMORAL VEIN AND SAPHENOFEMORAL JUNCTION: Normal phasicity, compression and augmentation. No visualized echogenic material on mcnair scale. No de fects on color images. IMPRESSION: NO EVIDENCE OF DVT OR SVT IN THE RIGHT LEG. TECHNICAL DOCUMENTATION: JOB ID: [id number] [employer]- All Rights Reserved Reading location - IP/workstation name: [email or web address]
[2018-01-15 16:56] LABS: APPEARANCE,URINE CLEAR; BILIRUBIN,URINE NEGATIVE (NEGATIVE); COLOR,URINE YELLOW; GLUCOSE, URINE NEGATIVE (NEGATIVE); KETONES,URINE NEGATIVE (NEGATIVE); LEUKOCYTE ESTERASE,URINE NEGATIVE (NEGATIVE); NITRITE,URINE NEGATIVE (NEGATIVE); PROTEIN,URINE NEGATIVE (NEGATIVE); URINE SPECIFIC GRAVITY 1.016; UROBILINOGEN,URINE NEGATIVE mg/dL (<2.0)
[2018-01-15 17:01] VITALS: BP 132/80
--- NOTE | 2018-01-15 17:20 | EKG REPORT ---
SEVERITY:- BORDERLINE ECG - SINUS RHYTHM BORDERLINE T WAVE ABNORMALITIES : Confirmed by: Elmer Lora MD 15-Jan-2018 17:19:45
== END 2018-01-15 17:01 | disposition home or self-care (01) ==
LOC: ER 12:42
DX: R20.0 Anesthesia of skin (principal); Q79.6 Ehlers-Danlos syndromes; R55 Syncope and collapse; D72.829 Elevated white blood cell count, unspecified; Z87.892 Personal history of anaphylaxis; Z91.048 Other nonmedicinal substance allergy status; Z88.0 Allergy status to penicillin; Z88.1 Allergy status to other antibiotic agents; Z91.012 Allergy to eggs; Z88.7 Allergy status to serum and vaccine; Z91.040 Latex allergy status; Z88.3 Allergy status to other anti-infective agents; Z88.2 Allergy status to sulfonamides
CPT/HCPCS: 93005; 99284; 96360; 36415; 84703; 85025; 81025; 80053; 81001; 93971; 93010; J7030

== ENCOUNTER 2018-02-04 12:12 | Inpatient (IN) | payer BC ==
--- NOTE | 2018-02-04 13:30 | ER Document Report ---
ED Medical Screen (RME) - General Chief Complaint: Post Surgical Pain Stated Complaint: SURGERY WOUND RECHECK Time Seen by Provider: 02/04/18 13:11 Mode of Arrival: Ambulatory Information source: Patient Notes: Patient is a 23-year-old presents to the emergency department complaining of redness and discharge from her recently placed port. Patient states port was placed 3 days ago in [place] but the surgical area has recently became red and tender to palpation last night. Patient states that she had the port placed due to having weekly infusions of saline and potassium. Patient also complains of chills. Patient denies any fevers. GENERAL: Alert, interacts well. No acute distress. HEAD: Normocephalic, Atraumatic. NECK: Full range of motion. Supple. Trachea midline. LUNGS: Clear to auscultation bilaterally, no wheezes, rales, or rhonchi. No respiratory distress. HEART: Mild erythema around surgical incision and tenderness to palpation around perimeter of port located on the right. Tachycardic. No murmurs, gallops , or rubs. EXTREMITIES: Moves all four extremities spontaneously. PSYCH: Normal affect, normal mood. I have greeted and performed a rapid initial assessment of this patient. A comprehensive ED assessment and evaluation of the patient, analysis of test results and completion of the medical decision making process will be conducted by additional ED providers. TRAVEL OUTSIDE OF THE [place] IN LAST 30 DAYS: No - Related Data Allergies/Adverse Reactions: adhesive Allergy (Severe, Verified 02/04/18 12:23) BLISTERS AND SKIN WILL RIP AND FALL OFF amoxicillin Allergy (Severe, Verified 02/04/18 12:23) Anaphylaxis ciprofloxacin [From Cipro] Allergy (Severe, Verified 02/04/18 12:23) Anaphylaxis clavulanic acid [From Augmentin] Allergy (Severe, Verified 02/04/18 12:23) Anaphylaxis egg Allergy (Severe, Verified 02/04/18 12:23) Anaphylaxis Influenza Virus Vaccines Allergy (Severe, Verified 02/04/18 12:23) Anaphylaxis latex Allergy (Severe, Verified 02/04/18 12:23) Anaphylaxis levofloxacin [From Levaquin] Allergy (Severe, Verified 02/04/18 12:23) Anaphylaxis Penicillins Allergy (Severe, Verified 02/04/18 12:23) Anaphylaxis povidone-iodine [From Betadine] Allergy (Severe, Verified 02/04/18 12:23) Anaphylaxis soap [From Betadine] Allergy (Severe, Verified 02/04/18 12:23) Anaphylaxis Sulfa (Sulfonamide Antibiotics) Allergy (Severe, Verified 02/04/18 12:23) Anaphylaxis aspartame [From Prevalite] Allergy (Mild, Verified 02/04/18 12:23) RASH cholestyramine [From Prevalite] Allergy (Mild, Verified 02/04/18 12:23) RASH nitrofurantoin [From Macrobid] Allergy (Mild, Verified 02/04/18 12:23) RASH CHLORAPREP Allergy (Severe, Uncoded 02/04/18 12:23) Anaphylaxis Past Medical History - Social History Chew tobacco use (# tins/day): No Frequency of alcohol use: None Drug Abuse: None - Past Medical History Cardiac Medical History: Denies: Hx Coronary Artery Disease, Hx Heart Attack, Hx Hypertension Pulmonary Medical History: Denies: Hx Asthma - REACTIVE AIRWAY, Hx Bronchitis, Hx COPD, Hx Pneumonia Neurological Medical History: Denies: Hx Cerebrovascular Accident, Hx Seizures - DOES EXPERIENCE SYNCOPAL EPISODES Renal/ Medical History: Denies: Hx Peritoneal Dialysis Musculoskeltal Medical History: Reports Hx Arthritis - EARLY ONSET OSTEOARTHRITS , FREQUENT DISLOCATIONS OF JOINTS Past Surgical History: Reports: Hx Cholecystectomy, Hx Gynecologic Surgery, Hx Orthopedic Surgery - hip reconstruction - Immunizations Hx Diphtheria, Pertussis, Tetanus Vaccination: No Physical Exam - Vital signs Vitals: Temp Pulse Resp BP Pulse Ox 98.4 F 114 H 18 132/86 H 97 02/04/18 12:27 02/04/18 12:27 02/04/18 12:27 02/04/18 12:27 02/04/18 12:27 Course - Vital Signs Vital signs: Temp Pulse Resp BP Pulse Ox 98.4 F 114 H 18 132/86 H 97 02/04/18 12:27 02/04/18 12:27 02/04/18 12:27 02/04/18 12:27 02/04/18 12:27 - Laboratory Result Diagrams: 02/04/18 13:45 02/04/18 13:45 Laboratory results interpreted by me: 02/04/18 02/04/18 13:45 13:45 WBC 14.3 H RBC 5.50 H Hgb 16.2 H Hct 48.2 H Plt Count 549 H Absolute Neutrophils 10.9 H Calcium 10.3 H Direct Bilirubin 0.5 H ALT 57 H Total Protein 8.7 H Doctor's Discharge - Discharge Scribe Documentation - Scribe Written by Abdullahi:: Abdullahi Wen, 02/04/2018 13:39 acting as scribe for :: Esequiel
[2018-02-04 14:06] LABS: ABSOLUTE BASOPHILS # (AUTO) 0.2 10^3/uL (0.0-0.2); ABSOLUTE EOSINOPHILS # (AUTO) 0.2 10^3/uL (0.0-0.6); ABSOLUTE LYMPHOCYTES (AUTO) 2.2 10^3/uL (0.5-4.7); ABSOLUTE MONOCYTES (AUTO) 0.9 10^3/uL (0.1-1.4); ABSOLUTE NEUT (AUTO) 10.9 10^3/uL (1.7-8.2); EOSINOPHILS % (AUTO) 1.6 % (0-6); HEMATOCRIT 48.2 % (36.0-47.0); HEMOGLOBIN 16.2 g/dL (12.0-15.5); LYMPHOCYTES % (AUTO) 15.4 % (13-45); MEAN CORPUSCULAR HEMOGLOBIN 29.5 pg (27.0-33.4); MEAN CORPUSCULAR HGB CONC 33.7 g/dL (32.0-36.0); MEAN CORPUSCULAR VOLUME 88 fl (80-97); MONOCYTES % (AUTO) 6.2 % (3-13); PLATELET COUNT 549 10^3/uL (150-450); RED CELL DISTRIBUTION WIDTH 13.1 % (11.5-14.0); SEGMENTED NEUTROPHILS % (AUTO) 75.8 % (42-78); TOTAL CELLS COUNTED % (AUTO) 100 %; WHITE BLOOD COUNT 14.3 10^3/uL (4.0-10.5)
[2018-02-04 14:28] LABS: ALANINE AMINOTRANSFERASE 57 U/L (9-52); ALBUMIN 4.9 g/dL (3.5-5.0); ALKALINE PHOSPHATASE 82 U/L (38-126); ANION GAP 14 (5-19); ASPARTATE AMINO TRANSFERASE 35 U/L (14-36); BILIRUBIN,DIRECT 0.5 mg/dL (0.0-0.4); BILIRUBIN,TOTAL 0.5 mg/dL (0.2-1.3); BLOOD UREA NITROGEN 10 mg/dL (7-20); CALCIUM 10.3 mg/dL (8.4-10.2); CARBON DIOXIDE 24 mmol/L (22-30); CHLORIDE 102 mmol/L (98-107); GLUCOSE 90 mg/dL (75-110); POTASSIUM 4.8 mmol/L (3.6-5.0); SODIUM 139.5 mmol/L (137-145); TOTAL PROTEIN 8.7 g/dL (6.3-8.2)
--- NOTE | 2018-02-04 15:21 | ER Document Report ---
ED General - General Chief Complaint: Post Surgical Pain Stated Complaint: SURGERY WOUND RECHECK Time Seen by Provider: 02/04/18 13:11 Mode of Arrival: Ambulatory Information source: Patient TRAVEL OUTSIDE OF THE [place] IN LAST 30 DAYS: No - HPI Onset: This morning Onset/Duration: Gradual Quality of pain: Burning Severity: Moderate Associated symptoms: Chills. denies: Fever Exacerbated by: Movement, Other - PALPATION Relieved by: Denies Similar symptoms previously: No Recently seen / treated by doctor: Yes - HAD IV ACCESS DEVOCE IMPLANTED 3d AGO BY SURGEON IN [place] - Related Data Allergies/Adverse Reactions: adhesive Allergy (Severe, Verified 02/04/18 12:23) BLISTERS AND SKIN WILL RIP AND FALL OFF amoxicillin Allergy (Severe, Verified 02/04/18 12:23) Anaphylaxis ciprofloxacin [From Cipro] Allergy (Severe, Verified 02/04/18 12:23) Anaphylaxis clavulanic acid [From Augmentin] Allergy (Severe, Verified 02/04/18 12:23) Anaphylaxis egg Allergy (Severe, Verified 02/04/18 12:23) Anaphylaxis Influenza Virus Vaccines Allergy (Severe, Verified 02/04/18 12:23) Anaphylaxis latex Allergy (Severe, Verified 02/04/18 12:23) Anaphylaxis levofloxacin [From Levaquin] Allergy (Severe, Verified 02/04/18 12:23) Anaphylaxis Penicillins Allergy (Severe, Verified 02/04/18 12:23) Anaphylaxis povidone-iodine [From Betadine] Allergy (Severe, Verified 02/04/18 12:23) Anaphylaxis soap [From Betadine] Allergy (Severe, Verified 02/04/18 12:23) Anaphylaxis Sulfa (Sulfonamide Antibiotics) Allergy (Severe, Verified 02/04/18 12:23) Anaphylaxis aspartame [From Prevalite] Allergy (Mild, Verified 02/04/18 12:23) RASH cholestyramine [From Prevalite] Allergy (Mild, Verified 02/04/18 12:23) RASH nitrofurantoin [From Macrobid] Allergy (Mild, Verified 02/04/18 12:23) RASH CHLORAPREP Allergy (Severe, Uncoded 02/04/18 12:23) Anaphylaxis Past Medical History - General Information source: Patient - Social History Smoking Status: Never Smoker Chew tobacco use (# tins/day): No Frequency of alcohol use: None Drug Abuse: None Family History: Reviewed & Not Pertinent Patient has suicidal ideation: No Patient has homicidal ideation: No - Past Medical History Cardiac Medical History: Denies: Hx Coronary Artery Disease, Hx Heart Attack, Hx Hypertension Pulmonary Medical History: Denies: Hx Asthma - REACTIVE AIRWAY, Hx Bronchitis, Hx COPD, Hx Pneumonia Neurological Medical History: Denies: Hx Cerebrovascular Accident, Hx Seizures - DOES EXPERIENCE SYNCOPAL EPISODES Renal/ Medical History: Denies: Hx Peritoneal Dialysis Musculoskeltal Medical History: Reports Hx Arthritis - EARLY ONSET OSTEOARTHRITS , FREQUENT DISLOCATIONS OF JOINTS, 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 Past Surgical History: Reports: Hx Cholecystectomy, Hx Gynecologic Surgery, Hx Orthopedic Surgery - hip reconstruction - Immunizations Hx Diphtheria, Pertussis, Tetanus Vaccination: No Review of Systems - Review of Systems Constitutional: Chills EENT: No symptoms reported Cardiovascular: No symptoms reported Respiratory: No symptoms reported Gastrointestinal: No symptoms reported Musculoskeletal: No symptoms reported Skin: See HPI Neurological/Psychological: No symptoms reported Physical Exam - Vital signs Vitals: Temp Pulse Resp BP Pulse Ox 98.4 F 114 H 18 132/86 H 97 02/04/18 12:27 02/04/18 12:27 02/04/18 12:27 02/04/18 12:27 02/04/18 12:27 Interpretation: Tachycardic. No: Tachypneic, Febrile - General General appearance: Appears well, Alert In distress: None - HEENT Head: Normocephalic Eyes: Normal Conjunctiva: Normal Ears: Normal Nasal: Normal Mouth/Lips: Normal Mucous membranes: Normal - Respiratory Respiratory status: No respiratory distress Breath sounds: Normal - Cardiovascular Rhythm: Regular Heart sounds: Normal auscultation Murmur: No - Abdominal Inspection: Obese - Extremities General upper extremity: Normal inspection General lower extremity: Normal inspection - Neurological Neuro grossly intact: Yes Cognition: Normal Orientation: AAOx4 - Psychological Associated symptoms: Normal affect, Normal mood - Skin Skin Temperature: Warm Skin Moisture: Dry Skin Color: Normal Skin Turgor: Elastic Notes: Surgical wound and right subclavian area is mildly inflamed, erythematous, tender, with slight yellow discharge. Course - Vital Signs Vital signs: Temp Pulse Resp BP Pulse Ox 98.0 F 107 H 18 128/83 H 100 02/04/18 16:01 02/04/18 16:01 02/04/18 16:01 02/04/18 16:01 02/04/18 16:01 - Laboratory Result Diagrams: 02/04/18 13:45 02/04/18 13:45 Laboratory results interpreted by me: 02/04/18 02/04/18 13:45 13:45 WBC 14.3 H RBC 5.50 H Hgb 16.2 H Hct 48.2 H Plt Count 549 H Absolute Neutrophils 10.9 H Calcium 10.3 H Direct Bilirubin 0.5 H ALT 57 H Total Protein 8.7 H - Consults DR. FOWLER Time consulted: 17:19 Reason for consultation: 02/04/18 20:57 Agrees with need for IV antibiotics. Is willing to admit if transfer to [place] cannot be accomplished. Consulted provider: will come to ER DR. MENJIVAR Time consulted: 20:00 Reason for consultation: 02/04/18 20:24 ADVISES ADMISSION FOR IV ANTIBx INDICATED, CAN BE DONE LOCALLY OR IN [place], PER PATIENT PREFERENCE. 02/04/18 20:58 Return phone call from Dr. Connor, he advises that his hospital is on diversion and no bed space is likely to become available for at least 48 hours. Discharge - Discharge Clinical Impression: Surgical wound infection Qualifiers: Encounter type: initial encounter Qualified Code(s): T81.4XXA - Infection following a procedure, initial encounter Condition: Stable Disposition: ADMITTED INPATIENT Admitting Provider: Surgicalist Unit Admitted: Surgical Floor Referrals: WASHINGTON MCKINLEY DO [Primary Care Provider] - Follow up as needed
[2018-02-04] MEDS ORDERED: VANCOMYCIN HCL INJ 1000 MG VIAL IV ONE (15:56)
--- NOTE | 2018-02-04 20:37 | PDOC CONSULTATION ---
Consultation Consult Date: 02/04/18 Attending physician:: AURE FOWLER Consult reason:: infected mediport site History of Present Illness Admission Date/PCP: WASHINGTON MCKINLEY DO History of Present Illness: DWIGHT ADAMES is a 23 year old female who had a mediport inserted at [facility] in [place] 3 days ago and has now developed redness with minimal purulent drainage from the incision. There was some chills too. Past Medical History Cardiac Medical History: Denies: Coronary Artery Disease, Myocardial Infarction, Hypertension Pulmonary Medical History: Denies: Asthma - REACTIVE AIRWAY, Bronchitis, Chronic Obstructive Pulmonary Disease (COPD), Pneumonia Neurological Medical History: Denies: Seizures - DOES EXPERIENCE SYNCOPAL EPISODES Musculoskeltal Medical History: Reports: Arthritis - EARLY ONSET OSTEOARTHRITS, FREQUENT DISLOCATIONS OF JOINTS, Other - ELISA-DANLOS Hematology: Reports: Anemia - LOW BLOOD VOLUME, INCREASED WHITE CELLS Past Surgical History Past Surgical History: Reports: Cholecystectomy, Orthopedic Surgery - hip reconstruction Social History Smoking Status: Never Smoker Family History Family History: Reviewed & Not Pertinent Parental Family History Reviewed: No Children Family History Reviewed: Unknown Sibling(s) Family History Reviewed.: Unknown Medication/Allergy Home Medications: Etonogestrel [Nexplanon] 68 mg SQ ASDIR PRN 12/30/16 Rizatriptan Benzoate [Maxalt] 5 mg PO ASDIR PRN 12/30/16 Tizanidine HCl 4 mg PO QHS 12/30/16 Ondansetron [Zofran Odt 4 mg Tablet] 1 - 2 tab PO Q4H PRN #15 tab.rapdis Diphenhydramine HCl [Benadryl] 2 tab PO BID 02/04/18 Hydrocodone/Acetaminophen [Vicodin 5-300 mg Tablet] 1 tab PO BID 02/04/18 Potassium Chloride in 0.9%NaCl [Potassium Cl 20 Meq/250 ml-Ns] 20 meq IV ASDIR PRN 02/04/18 Ranitidine HCl [Zantac 150 mg Tablet] 300 mg PO BID 02/04/18 Allergies/Adverse Reactions: adhesive Allergy (Severe, Verified 02/04/18 12:23) BLISTERS AND SKIN WILL RIP AND FALL OFF amoxicillin Allergy (Severe, Verified 02/04/18 12:23) Anaphylaxis ciprofloxacin [From Cipro] Allergy (Severe, Verified 02/04/18 12:23) Anaphylaxis clavulanic acid [From Augmentin] Allergy (Severe, Verified 02/04/18 12:23) Anaphylaxis egg Allergy (Severe, Verified 02/04/18 12:23) Anaphylaxis Influenza Virus Vaccines Allergy (Severe, Verified 02/04/18 12:23) Anaphylaxis latex Allergy (Severe, Verified 02/04/18 12:23) Anaphylaxis levofloxacin [From Levaquin] Allergy (Severe, Verified 02/04/18 12:23) Anaphylaxis Penicillins Allergy (Severe, Verified 02/04/18 12:23) Anaphylaxis povidone-iodine [From Betadine] Allergy (Severe, Verified 02/04/18 12:23) Anaphylaxis soap [From Betadine] Allergy (Severe, Verified 02/04/18 12:23) Anaphylaxis Sulfa (Sulfonamide Antibiotics) Allergy (Severe, Verified 02/04/18 12:23) Anaphylaxis aspartame [From Prevalite] Allergy (Mild, Verified 02/04/18 12:23) RASH cholestyramine [From Prevalite] Allergy (Mild, Verified 02/04/18 12:23) RASH nitrofurantoin [From Macrobid] Allergy (Mild, Verified 02/04/18 12:23) RASH CHLORAPREP Allergy (Severe, Uncoded 02/04/18 12:23) Anaphylaxis Review of Systems Constitutional: PRESENT: chills Eyes: ABSENT: visual disturbances Ears: ABSENT: hearing changes Cardiovascular: ABSENT: chest pain, dyspnea on exertion, edema, orthropnea, palpitations Respiratory: ABSENT: cough, hemoptysis Genitourinary: ABSENT: dysuria, hematuria Integumentary: PRESENT: as per HPI Neurological: ABSENT: abnormal gait, abnormal speech, confusion, dizziness, focal weakness, syncope Psychiatric: ABSENT: anxiety, depression, homidical ideation, suicidal ideation Physical Exam Vital Signs: Temp Pulse Resp BP Pulse Ox 98.0 F 107 H 18 128/83 H 100 02/04/18 16:01 02/04/18 16:01 02/04/18 16:01 02/04/18 16:01 02/04/18 16:01 Intake & Output 02/03/18 02/04/18 02/05/18 06:59 06:59 06:59 Weight 123.3 kg General appearance: PRESENT: no acute distress, morbidly obese, well-developed, well-nourished Head exam: PRESENT: atraumatic, normocephalic Eye exam: PRESENT: conjunctiva pink, EOMI, PERRLA. ABSENT: scleral icterus Neck exam: ABSENT: carotid bruit, JVD, lymphadenopathy, thyromegaly Respiratory exam: PRESENT: clear to auscultation adelita. ABSENT: rales, rhonchi, wheezes Cardiovascular exam: PRESENT: RRR. ABSENT: diastolic murmur, rubs, systolic murmur GI/Abdominal exam: PRESENT: normal bowel sounds, soft. ABSENT: distended, guarding, mass, organolmegaly, rebound, tenderness Neurological exam: PRESENT: alert, awake, oriented to person, oriented to place , oriented to time, oriented to situation, CN II-XII grossly intact. ABSENT: motor sensory deficit Skin exam: PRESENT: other - right infraclavicular chest wall mediport site incision has erythema along the entire length of the incision. There is minimal purulence at both ends of the incision but no fluctuance. Results Laboratory Results: 02/04/18 13:45 02/04/18 13:45 02/04/18 02/04/18 02/04/18 13:45 13:45 13:45 WBC 14.3 H RBC 5.50 H Hgb 16.2 H Hct 48.2 H MCV 88 MCH 29.5 MCHC 33.7 RDW 13.1 Plt Count 549 H Seg Neutrophils % 75.8 Lymphocytes % 15.4 Monocytes % 6.2 Eosinophils % 1.6 Basophils % 1.0 Absolute Neutrophils 10.9 H Absolute Lymphocytes 2.2 Absolute Monocytes 0.9 Absolute Eosinophils 0.2 Absolute Basophils 0.2 Sodium 139.5 Potassium 4.8 Chloride 102 Carbon Dioxide 24 Anion Gap 14 BUN 10 Creatinine 0.55 Est GFR ( Amer) > 60 Est GFR (Non-Af Amer) > 60 Glucose 90 Lactic Acid 1.2 Calcium 10.3 H Magnesium 2.2 Total Bilirubin 0.5 AST 35 ALT 57 H Alkaline Phosphatase 82 Total Protein 8.7 H Albumin 4.9 Assessment & Plan - Diagnosis (1) Port or reservoir infection Is this a current diagnosis for this admission?: Yes (2) Infected venous access port Is this a current diagnosis for this admission?: Yes (3) Surgical wound infection Qualifiers: Encounter type: initial encounter Qualified Code(s): T81.4XXA - Infection following a procedure, initial encounter Is this a current diagnosis for this admission?: Yes - Plan Summary Plan Summary: The patient will require in-patient intravenous antibiotics. The ER physician did speak with the primary surgeon who is willing to accept the patient. She will be transferred to [facility].
[2018-02-04] MEDS ORDERED: ONDANSETRON HCL INJ/PF 4 MG/2 ML SDV IV PRN (22:50)
[2018-02-04] MEDS ORDERED: ACETAMINOPHEN 325 MG TABLET PO PRN (22:50)
[2018-02-04] MEDS ORDERED: (PENDING PHARMACY ID) (Rizatriptan Benzoate [Maxalt] 5 MG) PO PRN (22:55)
--- NOTE | 2018-02-04 23:10 | PDOC H&P ---
History of Present Illness Admission Date/PCP: 02/04/18 21:22 WASHINGTON MCKINLEY DO Patient complains of: redness and drainage from site of newly inserted mediport History of Present Illness: DWIGHT ADAMES is a 23 year old female who had a mediport inserted at [facility] in [place] 3 days ago and has now developed redness with minimal purulent drainage from the incision. There was some chills too. She receives weekly electrolyte infusions for dysautonomia and so needs the mediport. Past Medical History Cardiac Medical History: Denies: Coronary Artery Disease, Myocardial Infarction, Hypertension Pulmonary Medical History: Denies: Asthma - REACTIVE AIRWAY, Bronchitis, Chronic Obstructive Pulmonary Disease (COPD), Pneumonia Neurological Medical History: Denies: Seizures - DOES EXPERIENCE SYNCOPAL EPISODES Musculoskeltal Medical History: Reports: Arthritis - EARLY ONSET OSTEOARTHRITS, FREQUENT DISLOCATIONS OF JOINTS, Other - ELISA-DANLOS Hematology: Reports: Anemia - LOW BLOOD VOLUME, INCREASED WHITE CELLS Past Surgical History Past Surgical History: Reports: Cholecystectomy, Orthopedic Surgery - hip reconstruction Social History Smoking Status: Never Smoker Family History Family History: Reviewed & Not Pertinent Parental Family History Reviewed: No Children Family History Reviewed: Unknown Sibling(s) Family History Reviewed.: Unknown Medication/Allergy Home Medications: Etonogestrel [Nexplanon] 68 mg SQ ASDIR PRN 12/30/16 Rizatriptan Benzoate [Maxalt] 5 mg PO ASDIR PRN 12/30/16 Tizanidine HCl 4 mg PO QHS 12/30/16 Ondansetron [Zofran Odt 4 mg Tablet] 1 - 2 tab PO Q4H PRN #15 tab.rapdis Diphenhydramine HCl [Benadryl] 2 tab PO BID 02/04/18 Hydrocodone/Acetaminophen [Vicodin 5-300 mg Tablet] 1 tab PO BID 02/04/18 Potassium Chloride in 0.9%NaCl [Potassium Cl 20 Meq/250 ml-Ns] 20 meq IV ASDIR PRN 02/04/18 Ranitidine HCl [Zantac 150 mg Tablet] 300 mg PO BID 02/04/18 Allergies/Adverse Reactions: adhesive Allergy (Severe, Verified 02/04/18 12:23) BLISTERS AND SKIN WILL RIP AND FALL OFF amoxicillin Allergy (Severe, Verified 02/04/18 12:23) Anaphylaxis ciprofloxacin [From Cipro] Allergy (Severe, Verified 02/04/18 12:23) Anaphylaxis clavulanic acid [From Augmentin] Allergy (Severe, Verified 02/04/18 12:23) Anaphylaxis egg Allergy (Severe, Verified 02/04/18 12:23) Anaphylaxis Influenza Virus Vaccines Allergy (Severe, Verified 02/04/18 12:23) Anaphylaxis latex Allergy (Severe, Verified 02/04/18 12:23) Anaphylaxis levofloxacin [From Levaquin] Allergy (Severe, Verified 02/04/18 12:23) Anaphylaxis Penicillins Allergy (Severe, Verified 02/04/18 12:23) Anaphylaxis povidone-iodine [From Betadine] Allergy (Severe, Verified 02/04/18 12:23) Anaphylaxis soap [From Betadine] Allergy (Severe, Verified 02/04/18 12:23) Anaphylaxis Sulfa (Sulfonamide Antibiotics) Allergy (Severe, Verified 02/04/18 12:23) Anaphylaxis aspartame [From Prevalite] Allergy (Mild, Verified 02/04/18 12:23) RASH cholestyramine [From Prevalite] Allergy (Mild, Verified 02/04/18 12:23) RASH nitrofurantoin [From Macrobid] Allergy (Mild, Verified 02/04/18 12:23) RASH CHLORAPREP Allergy (Severe, Uncoded 02/04/18 12:23) Anaphylaxis Review of Systems Constitutional: PRESENT: chills Eyes: ABSENT: visual disturbances Ears: ABSENT: hearing changes Nose, Mouth, and Throat: PRESENT: as per HPI, headache(s), mouth pain, sore throat, vertigo, other Cardiovascular: ABSENT: chest pain, dyspnea on exertion, edema, orthropnea, palpitations Respiratory: ABSENT: cough, hemoptysis Gastrointestinal: ABSENT: abdominal pain, constipation, diarrhea, hematemesis, hematochezia, nausea, vomiting Genitourinary: ABSENT: dysuria, hematuria Musculoskeletal: ABSENT: joint swelling Integumentary: PRESENT: as per HPI Neurological: ABSENT: abnormal gait, abnormal speech, confusion, dizziness, focal weakness, syncope Psychiatric: ABSENT: anxiety, depression, homidical ideation, suicidal ideation Physical Exam Vital Signs: Temp Pulse Resp BP Pulse Ox 98.0 F 107 H 18 128/83 H 100 02/04/18 16:01 02/04/18 16:01 02/04/18 16:01 02/04/18 16:01 02/04/18 16:01 General appearance: PRESENT: no acute distress, well-developed, well-nourished Head exam: PRESENT: atraumatic, normocephalic Eye exam: PRESENT: conjunctiva pink, EOMI, PERRLA. ABSENT: scleral icterus Ear exam: PRESENT: normal external ear exam Neck exam: ABSENT: carotid bruit, JVD, lymphadenopathy, thyromegaly Respiratory exam: PRESENT: clear to auscultation adelita. ABSENT: rales, rhonchi, wheezes Cardiovascular exam: PRESENT: RRR. ABSENT: diastolic murmur, rubs, systolic murmur GI/Abdominal exam: PRESENT: normal bowel sounds, soft. ABSENT: distended, guarding, mass, organolmegaly, rebound, tenderness Neurological exam: PRESENT: alert, awake, oriented to person, oriented to place , oriented to time, oriented to situation, CN II-XII grossly intact. ABSENT: motor sensory deficit Psychiatric exam: PRESENT: appropriate affect, normal mood. ABSENT: homicidal ideation, suicidal ideation Skin exam: PRESENT: other - Right infraclavicular chest wall mediport site with erythema along the entire length of the 4cm incision. There is mini,mal purulence at the both ends of the incision. No fluctuance. Assessment & Plan - Diagnosis (1) Port or reservoir infection Is this a current diagnosis for this admission?: Yes (2) Infected venous access port Is this a current diagnosis for this admission?: Yes (3) Surgical wound infection Qualifiers: Encounter type: initial encounter Qualified Code(s): T81.4XXA - Infection following a procedure, initial encounter Is this a current diagnosis for this admission?: Yes - Plan Summary Plan Summary: The primary surgeon was willing to accept the patient for care but there are no beds at the hospital. The patient is admitted and will be treated with IV Vancomycin 2g daily to try and salvage the port.
[2018-02-04] MEDS ORDERED: TIZANIDINE HCL 4 MG TABLET PO ONE (23:30)
[2018-02-05 07:45] LABS: ABSOLUTE BASOPHILS # (AUTO) 0.1 10^3/uL (0.0-0.2); ABSOLUTE EOSINOPHILS # (AUTO) 0.3 10^3/uL (0.0-0.6); ABSOLUTE MONOCYTES (AUTO) 0.7 10^3/uL (0.1-1.4); ABSOLUTE NEUT (AUTO) 8.1 10^3/uL (1.7-8.2); HEMATOCRIT 42.8 % (36.0-47.0); HEMOGLOBIN 14.7 g/dL (12.0-15.5); MEAN CORPUSCULAR HEMOGLOBIN 30.2 pg (27.0-33.4); MEAN CORPUSCULAR HGB CONC 34.4 g/dL (32.0-36.0); MEAN CORPUSCULAR VOLUME 88 fl (80-97); MONOCYTES % (AUTO) 6.4 % (3-13); PLATELET COUNT 427 10^3/uL (150-450); RED BLOOD COUNT 4.89 10^6/uL (3.72-5.28); RED CELL DISTRIBUTION WIDTH 12.9 % (11.5-14.0); SEGMENTED NEUTROPHILS % (AUTO) 71.6 % (42-78); TOTAL CELLS COUNTED % (AUTO) 100 %; WHITE BLOOD COUNT 11.3 10^3/uL (4.0-10.5)
[2018-02-05 07:52] LABS: ANION GAP 12 (5-19); BLOOD UREA NITROGEN 12 mg/dL (7-20); CALCIUM 9.9 mg/dL (8.4-10.2); CARBON DIOXIDE 22 mmol/L (22-30); CHLORIDE 106 mmol/L (98-107); GLUCOSE 111 mg/dL (75-110); POTASSIUM 4.7 mmol/L (3.6-5.0); SODIUM 140.4 mmol/L (137-145)
[2018-02-05] MEDS ORDERED: FAMOTIDINE 20 MG TABLET PO SCH (10:00)
[2018-02-05] MEDS ORDERED: DIPHENHYDRAMINE HCL 25 MG CAPSULE PO SCH (10:00)
[2018-02-05] MEDS ORDERED: HYDROCODONE/ACETAMINOPHEN 5-325 MG TABLET PO SCH (10:00)
--- NOTE | 2018-02-05 13:22 | PDOC PROGRESS REPORT ---
Subjective Progress Note for:: 02/05/18 Subjective:: no c/o, reports oozing from right Portacath site has subsided Reason For Visit: SURGICAL WOUND INFECTION AT MEDIPORT SITE Physical Exam Vital Signs: Temp Pulse Resp BP Pulse Ox 97.9 F 101 H 16 132/81 H 96 02/05/18 11:40 02/05/18 11:40 02/05/18 11:40 02/05/18 11:40 02/05/18 11:40 General appearance: PRESENT: no acute distress Skin exam: PRESENT: other - right upper chest Portacaht site is clean, no cellulitis, no subcutaneous fluid collection, no drainage, no tenderness on palpation Results Laboratory Results: 02/05/18 07:11 02/05/18 07:11 02/05/18 02/05/18 07:11 07:11 WBC 11.3 H RBC 4.89 Hgb 14.7 Hct 42.8 MCV 88 MCH 30.2 MCHC 34.4 RDW 12.9 Plt Count 427 Seg Neutrophils % 71.6 Lymphocytes % 18.0 Monocytes % 6.4 Eosinophils % 3.0 Basophils % 1.0 Absolute Neutrophils 8.1 Absolute Lymphocytes 2.0 Absolute Monocytes 0.7 Absolute Eosinophils 0.3 Absolute Basophils 0.1 Sodium 140.4 Potassium 4.7 Chloride 106 Carbon Dioxide 22 Anion Gap 12 BUN 12 Creatinine 0.55 Est GFR ( Amer) > 60 Est GFR (Non-Af Amer) > 60 Glucose 111 H Calcium 9.9 Assessment & Plan - Diagnosis (1) pain Is this a current diagnosis for this admission?: Yes - Plan Summary Plan Summary: A/ Normal appearing right chest Portacath P/ patient can be discharged to home today as the Portacath is not infected Follow up with her Surgeon and PCP I am recommending to avoid accessing the Portacath for three weeks to avoid infection of the Portacath site.
[2018-02-05 13:53] VITALS: BP 126/78
--- NOTE | 2018-02-05 15:09 | DISCHARGE SUMMARY E ---
Discharge Summary NAME: DWIGHT ADAMES : 1995 AGE: 23Y ADMITTED: 02/04/2018 DISCHARGED: 02/05/2018 FINAL DIAGNOSIS: Pain at right upper chest Port-A-Cath site. COMPLICATIONS: None. HOSPITAL COURSE: This is a 23-year-old female with a rare autonomic nervous system disease, which requires administration of potassium and fluids during her hypotensive crises, who presented to the hospital complaining of drainage from a Port-A-Cath site inserted in the right upper chest. The Port-A-Cath was inserted about 4 days ago. The patient was admitted in the very engineering aide and examined during the day. On physical exam, the Port-A-Cath site was presented with no edema, no redness, no pain, no drainage, and no odor. At this point, it was deemed to be safe to discharge the patient home. She was discharged home on 02/05, the same day. She was given instructions to resume all of her home medications, please continue accordingly to see a primary care physician and a surgeon within 1 week. She was instructed to limit activity of the right upper extremity in terms of pulling, pushing, or rotation of the upper extremity to prevent damage to the Port-A-Cath insertion site. She was instructed to have the Port-A-Cath access 3 weeks after the insertion. DICTATING PHYSICIAN: YOSHI BARAJAS M.D. [id number] PHY#: [id number] ID: [id number] JOB#: [id number] ACCT: [id number] cc:Asael ASIF M.D. >
[2018-02-05] MEDS ORDERED: VANCOMYCIN HCL INJ 1000 MG VIAL IV SCH (18:00)
[2018-02-05] MEDS ORDERED: TIZANIDINE HCL 4 MG TABLET PO SCH (22:00)
== END 2018-02-05 14:15 | disposition home or self-care (01) | DRG 315 ==
LOC: ER 12:12 → EH 21:22 → 2N 02-05 07:42
PROVIDERS: ADMIT Surgery; ATTEND Surgery
DX: T82.848A Pain due to vascular prosthetic devices, implants and grafts, initial encounter (principal); Z68.42 Body mass index [BMI] 45.0-49.9, adult; G90.8 Other disorders of autonomic nervous system; E66.9 Obesity, unspecified; Z88.0 Allergy status to penicillin; Y83.8 Other surgical procedures as the cause of abnormal reaction of the patient, or of later complication, without mention of misadventure at the time of the procedure; Z88.2 Allergy status to sulfonamides; Z88.7 Allergy status to serum and vaccine; Z88.8 Allergy status to other drugs, medicaments and biological substances; Z88.6 Allergy status to analgesic agent; Z88.1 Allergy status to other antibiotic agents; Z91.012 Allergy to eggs; Z91.02 Food additives allergy status; Z91.040 Latex allergy status; Z90.49 Acquired absence of other specified parts of digestive tract; Z98.890 Other specified postprocedural states
CPT/HCPCS: 36415; 80048; 80053; 83605; 83735; 85025; 87040; 87070; 87205; 96365; 96366; 99284; J2405; J3370; J3490